=== PATIENT | male | born 1965 | race Caucasian/White ===

== ENCOUNTER 2018-04-01 09:35 | Day surgery (SDC) | payer OTHER ==
[~2018-04-01] VITALS: Ht 175.3 cm; Wt 89.8 kg
[~2018-04-01 09:35] MED LIST: ALBU90OI6 INH; HYDPAM25 PO; LISI5 PO; SIMV10 PO
== END 2018-04-01 22:42 | disposition home or self-care (01) ==
LOC: ORSCMMR 09:35 → ORD 10:30 → ORSCMMR 22:42
PROVIDERS: Internal Medicine Gastroenterology
PROC: 0DBN8ZX Excision of Sigmoid Colon, Via Natural or Artificial Opening Endoscopic, Diagnostic (ICD-10-PCS; principal; 2018-04-01 10:30)
DX: K62.5 Hemorrhage of anus and rectum (principal); K63.5 Polyp of colon; D12.5 Benign neoplasm of sigmoid colon; K57.30 Diverticulosis of large intestine without perforation or abscess without bleeding; J44.9 Chronic obstructive pulmonary disease, unspecified; I10 Essential (primary) hypertension; E78.00 Pure hypercholesterolemia, unspecified; D64.9 Anemia, unspecified; F17.210 Nicotine dependence, cigarettes, uncomplicated; Z79.899 Other long term (current) drug therapy
CPT/HCPCS: 87081; 88305; J7030